=== PATIENT | female | born 1960 | race Caucasian/White ===

== ENCOUNTER 2018-08-05 18:47 | Emergency (ER) | payer OTHER ==
[~2018-08-05] VITALS: Ht 162.6 cm; Wt 88.2 kg
[~2018-08-05 18:47] MED LIST: AMLO-511 PO; FENO160 PO; IBUP-2071 PO; LOSA50TA64 PO
[2018-08-05] MEDS ORDERED: KETOROLAC TROMETHAMINE 10 MG TABLET PO ONE (21:30)
[2018-08-05 22:16] VITALS: BP 132/70
== END 2018-08-05 22:37 | disposition home or self-care (01) ==
LOC: EMS 18:48
DX: M54.32 Sciatica, left side (principal); I10 Essential (primary) hypertension; Z79.899 Other long term (current) drug therapy